=== PATIENT | male | born 1995 | race Caucasian/White ===

== ENCOUNTER 2018-08-12 10:49 | Emergency (ER) | payer OTHER ==
--- NOTE | 2018-08-12 12:13 | ER ---
Nurse's Notes [facility] Name: Yong Moseley Age: 22 yrs Sex: Male : 1995 Arrival Date: 08/12/2018 Time: 10:52 Bed 8 Private MD: Davida Kenyon F Diagnosis: Other chest pain Presentation: 08/12 10:59 Presenting complaint: Patient states: continuous chest pain that is described as sharp/ ss stabbing, began yesterday at [employer]. Pain is worse with ROM of L arm. Transition of care: patient was not received from another setting of care. Onset of symptoms was August 11, 2018. Risk Assessment: Do you want to hurt yourself or someone else? Patient reports no desire to harm self or others. Initial Sepsis Screen: Does the patient meet any 2 criteria? No. Patient's initial sepsis screen is negative. Does the patient have a suspected source of infection? No. Patient's initial sepsis screen is negative. Care prior to arrival: None. 10:59 Method Of Arrival: Ambulatory ss 10:59 Acuity: JASON 3 ss Historical: - Allergies: 11:01 No Known Allergies; ss - Home Meds: 11:01 None [Active]; ss - PMHx: 11:01 None; ss - PSHx: 11:01 None; ss - Immunization history:: Adult Immunizations unknown. - Social history:: Smoking status: Patient uses tobacco products, denies chronic smoking, but will smoke occasionally, Patient/guardian denies using street drugs. - Ebola Screening: : Patient denies exposure to infectious person Patient denies travel to an Ebola-affected area in the 21 days before illness onset. - Family history:: not pertinent. Screenin:51 Abuse screen: Denies threats or abuse. Nutritional screening: No deficits noted. tw2 Tuberculosis screening: No symptoms or risk factors identified. Fall Risk None identified. Assessment: 11:52 Pain: Pain began. tw2 12:16 General: Appears in no apparent distress. well groomed, Behavior is calm, cooperative, tw2 appropriate for age. Pain: Complains of pain in left breast and right breast and anterior aspect of left upper chest and anterior aspect of right upper chest Pain does not radiate. Neuro: Level of Consciousness is awake, alert, obeys commands, Oriented to person, place, time, situation. Cardiovascular: Denies shortness of breath, Heart tones S1 S2 Patient's skin is warm and dry. Respiratory: Airway is patent Respiratory effort is even, unlabored, Respiratory pattern is regular, symmetrical, Breath sounds are clear bilaterally. GI: No signs and/or symptoms were reported involving the gastrointestinal system. : No signs and/or symptoms were reported regarding the genitourinary system. EENT: No signs and/or symptoms were reported regarding the EENT system. Derm: No signs and/or symptoms reported regarding the dermatologic system. Musculoskeletal: Reports pain in left breast and right breast and anterior aspect of left upper chest and anterior aspect of right upper chest with movement and palpation. 12:53 Reassessment: Patient appears in no apparent distress at this time. No changes from tw2 previously documented assessment. Patient and/or family updated on plan of care and expected duration. Pain level reassessed. Patient is alert, oriented x 3, equal unlabored respirations, skin warm/dry/pink. Vital Signs: 11:01 BP 136 / 71; Pulse 69; Resp 15; Temp 98.7(TE); Pulse Ox 100% on R/A; Weight 79.38 kg; ss Height 6 ft. 0 in. (182.88 cm); Pain 5/10; 12:00 BP 122 / 60; Pulse 54; Resp 17; Pulse Ox 99% on R/A; tw2 12:52 BP 127 / 67; Pulse 54; Resp 17; Pulse Ox 99% on R/A; tw2 11:01 Body Mass Index 23.73 (79.38 kg, 182.88 cm) ED Course: 10:52 Patient arrived in ED. dl4 10:52 Davida Kenyon MD is Private Physician. dl4 11:00 Triage completed. ss 11:01 Arm band placed on left wrist. ss 11:12 EKG done, by lab animal technologist. reviewed by River Liu MD. at1 11:45 River Liu MD is Attending Physician. nikki 11:51 Jinny Baron, PANFILO is Primary Nurse. tw2 11:51 Placed in gown. Bed in low position. Adult w/ patient. nurse monitoring on. Pulse ox on. tw2 NIBP on. 11:51 Patient maintains SpO2 saturation greater than 95% on room air. tw2 12:12 Davida Kenyon MD is Referral Physician. [facility] 12:16 Awaiting radiology results. Awaiting for x-ray, Awaiting: PRIOR to discharge. tw2 12:42 Chest Pa And Lat (2 Views) XRAY In Process Unspecified. EDMS 12:53 No provider procedures requiring assistance completed. Patient did not have IV access tw2 during this emergency room visit. Administered Medications: 12:15 Drug: [place] 10 mg-325 mg 1 tabs Route: PO; tw2 12:54 Follow up: Response: No adverse reaction; Pain is decreased tw2 12:24 Drug: TORadol 60 mg Route: IM; Site: right deltoid; tw2 12:54 Follow up: Response: No adverse reaction; Pain is decreased tw2 Outcome: 12:13 Discharge ordered by . [facility] 12:53 Discharged to home ambulatory, with family. tw2 12:53 Condition: stable 12:53 Discharge instructions given to patient, family, Instructed on discharge instructions, follow up and referral plans. no drinking with medication, no driving heavy equipment, medication usage, Demonstrated understanding of instructions, follow-up care, medications, Prescriptions given X 2. 12:54 Patient left the ED. tw2 Signatures: Dispatcher [employer] EDMS River Liu MD MD cha Smirch, Shelby, RN RN Madelaine Huff, apple sorter EKG Tat1 Jinny Baron RN RN tw2 Stoney Correa dl4
--- NOTE | 2018-08-12 12:14 | EDPHYS ---
Physician Documentation [facility] Name: Yong Moseley Age: 22 yrs Sex: Male : 1995 Arrival Date: 08/12/2018 Time: 10:52 Bed 8 Private MD: Davida Kenyon F ED Physician River Liu HPI: 08/12 12:08 This 22 yrs old Male presents to ER via Ambulatory with complaints of Chest nikki Pain. 12:08 The patient or guardian reports chest pain that is located primarily in the anterior nikki chest wall, bilaterally. The pain does not radiate. Associated signs and symptoms: The patient has no apparent associated signs or symptoms. The chest pain is described as sharp. Duration: The patient or guardian reports a single episode, that is still ongoing. Modifying factors: The symptoms are alleviated by remaining still, the symptoms are aggravated by movement, palpation of area. Severity of pain: At its worst the pain was mild moderate in the emergency department the pain is unchanged. The patient has not experienced similar symptoms in the past. Historical: - Allergies: 11:01 No Known Allergies; ss - Home Meds: 11: None [Active]; ss - PMHx: 11: None; ss - PSHx: 11: None; ss - Immunization history:: Adult Immunizations unknown. - Social history:: Smoking status: Patient uses tobacco products, denies chronic smoking, but will smoke occasionally, Patient/guardian denies using street drugs. - Ebola Screening: : Patient denies exposure to infectious person Patient denies travel to an Ebola-affected area in the 21 days before illness onset. - Family history:: not pertinent. ROS: 12:08 Constitutional: Negative for fever, chills, and weight loss, Eyes: Negative for injury, nikki pain, redness, and discharge, ENT: Negative for injury, pain, and discharge, Neck: Negative for injury, pain, and swelling, Cardiovascular: Negative for chest pain, palpitations, and edema, Respiratory: Negative for shortness of breath, cough, wheezing, and pleuritic chest pain, Abdomen/GI: Negative for abdominal pain, nausea, vomiting, diarrhea, and constipation, Back: Negative for injury and pain, : Negative for injury, bleeding, discharge, and swelling, MS/Extremity: Negative for injury and deformity, Skin: Negative for injury, rash, and discoloration, Neuro: Negative for headache, weakness, numbness, tingling, and seizure, Psych: Negative for depression, anxiety, suicide ideation, homicidal ideation, and hallucinations, Allergy/Immunology: Negative for hives, rash, and allergies, Endocrine: Negative for neck swelling, polydipsia, polyuria, polyphagia, and marked weight changes, Hematologic/Lymphatic: Negative for swollen nodes, abnormal bleeding, and unusual bruising. Exam: 12:08 Constitutional: This is a well developed, well nourished patient who is awake, alert, nikki and in no acute distress. Head/Face: Normocephalic, atraumatic. Eyes: Pupils equal round and reactive to light, extra-ocular motions intact. Lids and lashes normal. Conjunctiva and sclera are non-icteric and not injected. Cornea within normal limits. Periorbital areas with no swelling, redness, or edema. ENT: Nares patent. No nasal discharge, no septal abnormalities noted. Tympanic membranes are normal and external auditory canals are clear. Oropharynx with no redness, swelling, or masses, exudates, or evidence of obstruction, uvula midline. Mucous membranes moist. Neck: Trachea midline, no thyromegaly or masses palpated, and no cervical lymphadenopathy. Supple, full range of motion without nuchal rigidity, or vertebral point tenderness. No Meningismus. Cardiovascular: Regular rate and rhythm with a normal S1 and S2. No gallops, murmurs, or rubs. Normal PMI, no JVD. No pulse deficits. Respiratory: Lungs have equal breath sounds bilaterally, clear to auscultation and percussion. No rales, rhonchi or wheezes noted. No increased work of breathing, no retractions or nasal flaring. Abdomen/GI: Soft, non-tender, with normal bowel sounds. No distension or tympany. No guarding or rebound. No evidence of tenderness throughout. Back: No spinal tenderness. No costovertebral tenderness. Full range of motion. Male : Normal genitalia with no discharge or lesions. Skin: Warm, dry with normal turgor. Normal color with no rashes, no lesions, and no evidence of cellulitis. MS/ Extremity: Pulses equal, no cyanosis. Neurovascular intact. Full, normal range of motion. Neuro: Awake and alert, GCS 15, oriented to person, place, time, and situation. Cranial nerves II-XII grossly intact. Motor strength 5/5 in all extremities. Sensory grossly intact. Cerebellar exam normal. Normal gait. Psych: Awake, alert, with orientation to person, place and time. Behavior, mood, and affect are within normal limits. 12:08 Chest/axilla: Inspection: normal, Palpation: tenderness, that is moderate, of the anterior aspect of right upper chest, anterior aspect of left upper chest, right breast and left breast. 12:08 Musculoskeletal/extremity: DVT Exam: No signs of deep vein thrombosis. no pain, no nikki swelling, no tenderness, negative Homans' sign noted on exam, no appreciated bluish discoloration, no erythema, no increased warmth. Vital Signs: 11:01 BP 136 / 71; Pulse 69; Resp 15; Temp 98.7(TE); Pulse Ox 100% on R/A; Weight 79.38 kg; ss Height 6 ft. 0 in. (182.88 cm); Pain 5/10; 12:00 BP 122 / 60; Pulse 54; Resp 17; Pulse Ox 99% on R/A; tw2 12:52 BP 127 / 67; Pulse 54; Resp 17; Pulse Ox 99% on R/A; tw2 11:01 Body Mass Index 23.73 (79.38 kg, 182.88 cm) ss MDM: 11:45 Patient medically screened. [facility] 12:12 Data reviewed: vital signs, nurses notes, EKG, radiologic studies. [facility] 08/12 12:07 Order name: Chest Pa And Lat (2 Views) XRAY [facility] 08/12 11:01 Order name: EKG; Complete Time: 11:02 ss 08/12 11:01 Order name: EKG - Nurse/Tech; Complete Time: 11:49 ss Administered Medications: 12:15 Drug: [place] 10 mg-325 mg 1 tabs Route: PO; tw2 12:54 Follow up: Response: No adverse reaction; Pain is decreased tw2 12:24 Drug: TORadol 60 mg Route: IM; Site: right deltoid; tw2 12:54 Follow up: Response: No adverse reaction; Pain is decreased tw2 Disposition: 08/12/18 12:13 Discharged to Home. Impression: Other chest pain. - Condition is Stable. - Discharge Instructions: Nonspecific Chest Pain, Chest Wall Pain, Chest Wall Pain, [id number]. - Prescriptions for Ibuprofen 600 mg Oral Tablet - take 1 tablet by ORAL route every 8 hours As needed take with food; 30 tablet. Tylenol- Codeine #3 300-30 mg Oral Tablet - take 2 tablets by ORAL route every 6 hours As needed; 26 tablet. - Medication Reconciliation Form, Thank You Letter, Antibiotic Education, Prescription Opioid Use, Work release form form. - Follow up: Davida Kenyon MD; When: 2 - 3 days; Reason: Recheck today's complaints, Continuance of care, Re-evaluation by your physician. - Problem is new. - Symptoms have improved. Signatures: Dispatcher [employer] EDNJ River Liu MD MD cha Smirch, Shelby RN RN Jinny Baron RN RN tw2 Corrections: (The following items were deleted from the chart) 12:54 12:13 08/12/2018 12:13 Discharged to Home. Impression: Other chest pain. Condition is tw2 Stable. Forms are Medication Reconciliation Form, Thank You Letter, Antibiotic Education, Prescription Opioid Use. Follow up: Davida Kenyon; When: 2 - 3 days; Reason: Recheck today's complaints, Continuance of care, Re-evaluation by your physician. Problem is new. Symptoms have improved. nikki
--- NOTE | 2018-08-12 12:17 | EKG ---
Test Date: 2018-08-12 Test Time: 11:03:43 Information Technology Associate: AYSE MEASUREMENT RESULTS: Intervals: Rate: 67 CO: 140 QRSD: 90 QT: 384 QTc: 405 [place]: P: 50 CO: 140 QRS: 61 T: 41 INTERPRETIVE STATEMENTS: Normal sinus rhythm Normal ECG Compared to ECG 05/05/2004 15:13:00 Sinus bradycardia no longer present Early repolarization no longer present Electronically Signed On 08-12-18 12:16:12 CDT by Peter Wiley
[2018-08-12] MEDS ORDERED: HYDROCODONE/APAP 10/325 TAB ONE (12:26)
[2018-08-12] MEDS ORDERED: KETOROLAC 30 MG/ML INJ ONE (12:32)
--- NOTE | 2018-08-12 12:47 | RAD REPORT ---
EXAM DESCRIPTION: Gale Santos (2 Views)08/12/2018 12:42 pm CLINICAL HISTORY: Cough COMPARISON: 2009 FINDINGS: The lungs appear clear of acute infiltrate. The heart is normal size IMPRESSION: No acute abnormalities displayed
== END 2018-08-12 12:54 | disposition home or self-care (01) ==
LOC: ER 10:49
DX: R07.9 Chest pain, unspecified (principal); Z72.0 Tobacco use
CPT/HCPCS: 71046; 93005; 96372; 99285

== ENCOUNTER 2018-10-15 11:32 | Emergency (ER) | payer OTHER ==
--- NOTE | 2018-10-15 12:00 | EDPHYS ---
Physician Documentation [facility] Name: Yong Moseley Age: 22 yrs Sex: Male : 1995 Arrival Date: 10/15/2018 Time: 11:35 Bed 9 Private MD: ED Physician River Liu HPI: 10/15 11:56 This 22 yrs old Male presents to ER via Ambulatory with complaints of Redness nikki of Eye. 11:56 The patient is experiencing redness, The patient sustained None. to both eyes. Onset: nikki The symptoms/episode began/occurred yesterday. Duration: the symptoms are continuous. Aggravated by nothing. Alleviated by nothing. Associated signs and symptoms: Pertinent positives: None. Pertinent negatives: None. Patient does not utilize any form of vision correction. Severity of symptoms: At their worst the symptoms were mild moderate in the emergency department the symptoms are unchanged. The patient has not experienced similar symptoms in the past. Historical: - Allergies: 11:38 No Known Allergies; hj - Home Meds: 11:38 None [Active]; hj - PMHx: 11:38 None; hj - PSHx: 11:38 None; hj - Immunization history:: Adult Immunizations up to date. - Social history:: Smoking status: Patient uses tobacco products, Patient/guardian denies using alcohol. - Family history:: not pertinent. - Ebola Screening: : Patient negative for fever greater than or equal to 101.5 degrees Fahrenheit, and additional compatible Ebola Virus Disease symptoms Patient denies exposure to infectious person Patient denies travel to an Ebola-affected area in the 21 days before illness onset. ROS: 11:56 Constitutional: Negative for fever, chills, and weight loss, ENT: Negative for injury, nikki pain, and discharge, Neck: Negative for injury, pain, and swelling, Cardiovascular: Negative for chest pain, palpitations, and edema, Respiratory: Negative for shortness of breath, cough, wheezing, and pleuritic chest pain, Abdomen/GI: Negative for abdominal pain, nausea, vomiting, diarrhea, and constipation, Back: Negative for injury and pain, : Negative for injury, bleeding, discharge, and swelling, MS/Extremity: Negative for injury and deformity, Skin: Negative for injury, rash, and discoloration, Neuro: Negative for headache, weakness, numbness, tingling, and seizure, Psych: Negative for depression, anxiety, suicide ideation, homicidal ideation, and hallucinations, Allergy/Immunology: Negative for hives, rash, and allergies, Endocrine: Negative for neck swelling, polydipsia, polyuria, polyphagia, and marked weight changes, Hematologic/Lymphatic: Negative for swollen nodes, abnormal bleeding, and unusual bruising. 11:56 Eyes: Positive for pain, redness, tearing, of the outer aspect of conjuctiva of right eye, iris of right eye, inner aspect of conjuctiva of right eye, outer aspect of conjuctiva of left eye, iris of left eye and inner aspect of conjunctiva of left eye. Exam: 11:56 Constitutional: This is a well developed, well nourished patient who is awake, alert, nikki and in no acute distress. Head/Face: Normocephalic, atraumatic. ENT: Nares patent. No nasal discharge, no septal abnormalities noted. Tympanic membranes are normal and external auditory canals are clear. Oropharynx with no redness, swelling, or masses, exudates, or evidence of obstruction, uvula midline. Mucous membranes moist. Neck: Trachea midline, no thyromegaly or masses palpated, and no cervical lymphadenopathy. Supple, full range of motion without nuchal rigidity, or vertebral point tenderness. No Meningismus. Chest/axilla: Normal chest wall appearance and motion. Nontender with no deformity. No lesions are appreciated. Cardiovascular: Regular rate and rhythm with a normal S1 and S2. No gallops, murmurs, or rubs. Normal PMI, no JVD. No pulse deficits. Respiratory: Lungs have equal breath sounds bilaterally, clear to auscultation and percussion. No rales, rhonchi or wheezes noted. No increased work of breathing, no retractions or nasal flaring. Abdomen/GI: Soft, non-tender, with normal bowel sounds. No distension or tympany. No guarding or rebound. No evidence of tenderness throughout. Back: No spinal tenderness. No costovertebral tenderness. Full range of motion. Male : Normal genitalia with no discharge or lesions. Skin: Warm, dry with normal turgor. Normal color with no rashes, no lesions, and no evidence of cellulitis. MS/ Extremity: Pulses equal, no cyanosis. Neurovascular intact. Full, normal range of motion. Neuro: Awake and alert, GCS 15, oriented to person, place, time, and situation. Cranial nerves II-XII grossly intact. Motor strength 5/5 in all extremities. Sensory grossly intact. Cerebellar exam normal. Normal gait. Psych: Awake, alert, with orientation to person, place and time. Behavior, mood, and affect are within normal limits. 11:56 Eyes: Periorbital structures: appear normal, no acute changes, Pupils: no acute changes, equal, round, and reactive to light and accomodation, Extraocular movements: no acute changes, Conjunctiva: normal, no acute changes, Corneas: are normal, no acute changes, Sclera: injected, Anterior chamber: normal, Lids and lashes: edema, of the right eye, Nystagmus: is not appreciated. Vital Signs: 11:38 BP 126 / 80; Pulse 80; Resp 18; Temp 98.0(O); Pulse Ox 98% on R/A; Weight 80.74 kg; hj Height 5 ft. 11 in. (180.34 cm); Pain 8/10; 11:38 Body Mass Index 24.83 (80.74 kg, 180.34 cm) MDM: 11:45 Patient medically screened. [facility] 11:56 Data reviewed: vital signs, nurses notes. [facility] Administered Medications: No medications were administered Disposition: 10/15/18 11:59 Discharged to Home. Impression: Conjunctivitis. - Condition is Stable. - Discharge Instructions: Bacterial Conjunctivitis. - Prescriptions for Polytrim 10,000 unit- 1 mg/mL Ophthalmic drops - instill 1 drop by OPHTHALMIC route every 6 hours both eyes; 10 drop. - Medication Reconciliation Form, Thank You Letter, Antibiotic Education, Prescription Opioid Use, Work release form form. - Follow up: Private Physician; When: 2 - 3 days; Reason: Recheck today's complaints, Continuance of care, Re-evaluation by your physician. Follow up: Yong Contreras MD; When: 2 - 3 days; Reason: Recheck today's complaints, Continuance of care, Re-evaluation by your physician. - Problem is new. - Symptoms have improved. Signatures: River Liu MD MD cha Joaquin, Henry, RN RN Corrections: (The following items were deleted from the chart) 12:07 11:59 10/15/2018 11:59 Discharged to Home. Impression: Conjunctivitis. Condition is hj Stable. Forms are Medication Reconciliation Form, Thank You Letter, Antibiotic Education, Prescription Opioid Use. Follow up: Private Physician; When: 2 - 3 days; Reason: Recheck today's complaints, Continuance of care, Re-evaluation by your physician. Follow up: Yong Contreras; When: 2 - 3 days; Reason: Recheck today's complaints, Continuance of care, Re-evaluation by your physician. Problem is new. Symptoms have improved. nikki
--- NOTE | 2018-10-15 12:00 | ER ---
Nurse's Notes [facility] Name: Yong Moseley Age: 22 yrs Sex: Male : 1995 Arrival Date: 10/15/2018 Time: 11:35 Bed 9 Private MD: Diagnosis: Conjunctivitis Presentation: 10/15 11:36 Presenting complaint: Patient states: i think i had pink eye, it started Sunday hj night; i used pink eye relief OTC but nor helping; pain is 8/10;. Transition of care: patient was not received from another setting of care. Onset of symptoms was October 15, 2018. Risk Assessment: Do you want to hurt yourself or someone else? Patient reports no desire to harm self or others. Initial Sepsis Screen: Does the patient meet any 2 criteria? No. Patient's initial sepsis screen is negative. Does the patient have a suspected source of infection? No. Patient's initial sepsis screen is negative. Care prior to arrival: None. 11:36 Method Of Arrival: Ambulatory 11:36 Acuity: JASON 4 hj Triage Assessment: 11:38 General: Appears in no apparent distress. uncomfortable, Behavior is calm, cooperative, hj appropriate for age. Pain: Complains of pain in right eye. Historical: - Allergies: 11:38 No Known Allergies; hj - Home Meds: 11:38 None [Active]; hj - PMHx: 11:38 None; hj - PSHx: 11:38 None; hj - Immunization history:: Adult Immunizations up to date. - Social history:: Smoking status: Patient uses tobacco products, Patient/guardian denies using alcohol. - Family history:: not pertinent. - Ebola Screening: : Patient negative for fever greater than or equal to 101.5 degrees Fahrenheit, and additional compatible Ebola Virus Disease symptoms Patient denies exposure to infectious person Patient denies travel to an Ebola-affected area in the 21 days before illness onset. Screenin:20 Abuse screen: Denies threats or abuse. Denies injuries from another. Nutritional hj screening: No deficits noted. Tuberculosis screening: No symptoms or risk factors identified. Fall Risk None identified. Vital Signs: 11:38 BP 126 / 80; Pulse 80; Resp 18; Temp 98.0(O); Pulse Ox 98% on R/A; Weight 80.74 kg; hj Height 5 ft. 11 in. (180.34 cm); Pain 8/10; 11:38 Body Mass Index 24.83 (80.74 kg, 180.34 cm) hj ED Course: 11:35 Patient arrived in ED. mr 11:37 Triage completed. hj 11:38 Arm band placed on left wrist. hj 11:38 Patient has correct armband on for positive identification. Placed in gown. Bed in low hj position. Call light in reach. Side rails up X 1. Adult w/ patient. 11:45 River Liu MD is Attending Physician. [facility] 11:59 Yong Contreras MD is Referral Physician. [facility] 12:07 No provider procedures requiring assistance completed. Patient did not have IV access hj during this emergency room visit. Administered Medications: No medications were administered Outcome: 11:59 Discharge ordered by . [facility] 12:07 Discharged to home ambulatory, with family. 12:07 Condition: stable 12:07 Discharge instructions given to patient, family, Instructed on discharge instructions, follow up and referral plans. medication usage, Demonstrated understanding of instructions, follow-up care, medications, Prescriptions given X 1. 12:07 Patient left the ED. Signatures: River iLu MD MD cha Rivera, Mary Rickey Mendoza, RN RN hj Corrections: (The following items were deleted from the chart) 11:39 11:38 Resp 18bpm; Pulse Ox 98% RA; Temp 98.0F Oral; 80.74 kg; Height 5 ft. 11 in.; BMI: hj 24.8; Pain 8/10; hj
== END 2018-10-15 12:07 | disposition home or self-care (01) ==
LOC: ER 11:32
DX: H10.9 Unspecified conjunctivitis (principal); Z72.0 Tobacco use
CPT/HCPCS: 99282

== ENCOUNTER 2019-06-07 11:27 | Emergency (ER) | payer OTHER ==
--- OUTSIDE RECORDS SUMMARY | 2019-06-07 11:29 | XMS REPORT ---
:1995 [facility] Address [address] [place] [address] Care Team Providers Name Role Phone Unavailable Unavailable Unavailable Problems This patient has no known problems. Allergies, Adverse Reactions, Alerts This patient has no known allergies or adverse reactions. Medications This patient has no known medications. Encounters Start End Encounter Admission Attending Care Care Encounter Date/Time Date/Time Type Type Clinicians Facility Department ID 2019-03-10 2019-03-10 Emergency E [facility] [id number] 21:49:00 21:49:00
--- NOTE | 2019-06-07 12:47 | ER ---
Nurse's Notes [facility] Name: Yong Moseley Age: 23 yrs Sex: Male : 1995 Arrival Date: 06/07/2019 Time: 11:29 Bed 24 Private MD: Diagnosis: Nausea Presentation: 06/07 11:55 Presenting complaint: Patient states: has had acid reflux for a couple days, +nausea, iw no vomiting, black stools for two days. Transition of care: patient was not received from another setting of care. Onset of symptoms was June 05, 2019. Risk Assessment: Do you want to hurt yourself or someone else? Patient reports no desire to harm self or others. Initial Sepsis Screen: Does the patient meet any 2 criteria? No. Patient's initial sepsis screen is negative. Does the patient have a suspected source of infection? No. Patient's initial sepsis screen is negative. Care prior to arrival: None. 11:55 Method Of Arrival: Ambulatory iw 11:55 Acuity: JASON 3 iw Historical: - Allergies: 11:56 No Known Allergies; iw - Home Meds: 11:56 None [Active]; iw - PMHx: 11:56 None; iw - PSHx: 11:56 left foot; iw - Immunization history:: Adult Immunizations not up to date. - Coronavirus screen:: The patient has NOT traveled to [place], [place], or [place] in the past 14 days. Proceed with normal triage process as indicated. - Social history:: Smoking status: Patient reports the use of cigarette tobacco products, denies chronic smoking, but will smoke occasionally. - Ebola Screening: : Patient negative for fever greater than or equal to 101.5 degrees Fahrenheit, and additional compatible Ebola Virus Disease symptoms Patient denies exposure to infectious person Patient denies travel to an Ebola-affected area in the 21 days before illness onset No symptoms or risks identified at this time. Screenin:00 Abuse screen: Denies threats or abuse. Nutritional screening: Has had N/V for 3 or more vc days. Tuberculosis screening: No symptoms or risk factors identified. Fall Risk None identified. Assessment: 12:00 Musculoskeletal: Circulation, motion, and sensation intact. Capillary refill < 3 vc seconds, Range of motion: intact in all extremities. 12:00 General: Appears in no apparent distress. comfortable. Pain: Denies pain. Neuro: Level vc of Consciousness is awake, alert, obeys commands, Oriented to person, place, time. Cardiovascular: Patient's skin is warm and dry. Respiratory: Airway is patent Respiratory effort is even, unlabored. GI: Stools are reported to be normal. Reports nausea and black tarry stool. : No signs and/or symptoms were reported regarding the genitourinary system. Derm: Skin temperature is warm. 12:30 Reassessment: Patient and/or family updated on plan of care and expected duration. Pain vc level reassessed. Patient is alert, oriented x 3, equal unlabored respirations, skin warm/dry/pink. Patient denies pain at this time. Patient states feeling better. Vital Signs: 11:56 BP 144 / 80; Pulse 78; Resp 16; Temp 98.0; Pulse Ox 100% on R/A; Weight 86.18 kg; iw Height 5 ft. 11 in. (180.34 cm); Pain 0/10; 11:56 Body Mass Index 26.50 (86.18 kg, 180.34 cm) iw ED Course: 11:29 Patient arrived in ED. as 11:49 Ruth Falcon RN is Primary Nurse. vc 11:54 Jose Foreman NP is PHCP. pm1 11:54 Azael Sadler MD is Attending Physician. pm1 11:56 Triage completed. iw 11:56 Arm band placed on. iw 12:15 Patient has correct armband on for positive identification. vc 12:52 No provider procedures requiring assistance completed. Patient did not have IV access vc during this emergency room visit. Administered Medications: 12:48 Drug: Zofran 4 mg Route: PO; vc Outcome: 12:46 Discharge ordered by . pm1 12:50 Discharged to home ambulatory, with significant other. vc 12:50 Condition: good 12:50 Discharge instructions given to patient, Instructed on discharge instructions, follow up and referral plans. no drinking with medication, medication usage, Demonstrated understanding of instructions, follow-up care, medications, Prescriptions given X 2. 12:53 Patient left the ED. vc Signatures: Sherlyn Alfonso Irene, RN RN iw Jose Foreman NP ROLLER SKATE REPAIRER pm1 Ruth Falcon RN RN vc Corrections: (The following items were deleted from the chart) 13:11 13:06 Patient left the ED. vc vc 15:20 General: Appears in no apparent distress. comfortable, vc vc : 15:20 Pain: Denies pain. vc vc 15:20 Neuro: Level of Consciousness is awake, alert, obeys commands, Oriented to vc person, place, time, vc : 15:20 Cardiovascular: Patient's skin is warm and dry. vc vc : 15:20 Respiratory: Airway is patent Respiratory effort is even, unlabored, vc vc 15:20 GI: Stools are reported to be normal. Reports nausea and black tarry stool. vc vc : 15:20 : No signs and/or symptoms were reported regarding the genitourinary system. vc vc 15:20 EENT: vc vc 15:20 Derm: Skin temperature is warm vc vc
--- NOTE | 2019-06-07 12:47 | EDPHYS ---
Physician Documentation [facility] Name: Yong Moseley Age: 23 yrs Sex: Male : 1995 Arrival Date: 06/07/2019 Time: 11:29 Bed 24 Private MD: ED Physician Azael Sadler HPI: 06/07 12:45 This 23 yrs old Male presents to ER via Ambulatory with complaints of pm1 Black/Tarry Stools, Indigestion. 12:45 The patient presents to the emergency department with complaints of indigestion and pm1 dark stools. He had indigestion three days ago that has now resolved. Took Pepto Bismol the night before onset of dark stool and has been taking Tums. His stool is no longer as dark. Abdominal pain: none is appreciated. Associated signs and symptoms: Pertinent positives: Nausea, Pertinent negatives: chest pain, diarrhea, fever, shortness of breath, vomiting. Severity of symptoms: in the emergency department the symptoms have improved. The patient has not experienced similar symptoms in the past. Presented to urgent care prior to arrival for the same complaint and was directed to the ER. Historical: - Allergies: 11:56 No Known Allergies; iw - Home Meds: 11:56 None [Active]; iw - PMHx: 11:56 None; iw - PSHx: 11:56 left foot; iw - Immunization history:: Adult Immunizations not up to date. - Coronavirus screen:: The patient has NOT traveled to [place], [place], or [place] in the past 14 days. Proceed with normal triage process as indicated. - Social history:: Smoking status: Patient reports the use of cigarette tobacco products, denies chronic smoking, but will smoke occasionally. - Ebola Screening: : Patient negative for fever greater than or equal to 101.5 degrees Fahrenheit, and additional compatible Ebola Virus Disease symptoms Patient denies exposure to infectious person Patient denies travel to an Ebola-affected area in the 21 days before illness onset No symptoms or risks identified at this time. ROS: 12:45 Constitutional: Negative for fever, chills, and weight loss, Cardiovascular: Negative pm1 for chest pain, palpitations, and edema, Respiratory: Negative for shortness of breath, cough, wheezing, and pleuritic chest pain. 12:45 Back: Negative for injury and pain, : Negative for injury, bleeding, discharge, and swelling, MS/Extremity: Negative for injury and deformity, Skin: Negative for injury, rash, and discoloration, Neuro: Negative for headache, weakness, numbness, tingling, and seizure. 12:45 Abdomen/GI: Positive for nausea, black/tarry stool, Negative for vomiting, diarrhea, constipation. 12:45 All other systems are negative. Exam: 12:45 Abdomen/GI: Rectal exam: Stool: normal, guaiac negative, Patient wanted to provide a pm1 stool sample which was normal colored and pebble shaped and hemoccult negative. He did not want EVER or visualization of anus, the exam is deferred, because of patient request. 12:45 Constitutional: This is a well developed, well nourished patient who is awake, alert, pm1 and in no acute distress. Head/Face: Normocephalic, atraumatic. Chest/axilla: Normal chest wall appearance and motion. Nontender with no deformity. No lesions are appreciated. Cardiovascular: Regular rate and rhythm with a normal S1 and S2. No gallops, murmurs, or rubs. No pulse deficits. Respiratory: Lungs have equal breath sounds bilaterally, clear to auscultation and percussion. No rales, rhonchi or wheezes noted. No increased work of breathing, no retractions or nasal flaring. Abdomen/GI: Soft, non-tender, with normal bowel sounds. No distension or tympany. No guarding or rebound. No evidence of tenderness throughout. Back: No spinal tenderness. No costovertebral tenderness. Full range of motion. Skin: Warm, dry with normal turgor. Normal color with no rashes, no lesions, and no evidence of cellulitis. MS/ Extremity: Pulses equal, no cyanosis. Neurovascular intact. Full, normal range of motion. 12:45 Neuro: Orientation: is normal, Motor: is normal, moves all fours, Gait: is steady, at a normal pace, without difficulty. Vital Signs: 11:56 BP 144 / 80; Pulse 78; Resp 16; Temp 98.0; Pulse Ox 100% on R/A; Weight 86.18 kg; iw Height 5 ft. 11 in. (180.34 cm); Pain 0/10; 11:56 Body Mass Index 26.50 (86.18 kg, 180.34 cm) iw MDM: 11:56 Patient medically screened. pm1 12:42 Refusal of service: The patient/guardian displays adequate decision making capability pm1 and despite a detailed discussion of alternatives, benefits, risks, and consequences refuses: all lab tests, all X-rays, Discussed negative hemoccult results with patient. Patient refused visualization of anus and EVER. Patient reported continued nausea. Discussed labs, IV fluids, medication for nausea, and KUB x-ray. Patient refused because he has a wedding to go to today and will return to the ER if his symptoms worsen. 12:42 Data reviewed: vital signs. Data interpreted: Pulse oximetry: on room air is 100 %. pm1 Interpretation: normal. 12:42 Counseling: I had a detailed discussion with the patient and/or guardian regarding: the pm1 historical points, exam findings, and any diagnostic results supporting the discharge/admit diagnosis, the need for outpatient follow up, for definitive care, a executive producer, to return to the emergency department if symptoms worsen or persist or if there are any questions or concerns that arise at home. Administered Medications: 12:48 Drug: Zofran 4 mg Route: PO; vc Disposition: 14:16 Co-signature as Attending Physician, Azael Sadler MD. rn Disposition: 06/07/19 12:46 Discharged to Home. Impression: Nausea. - Condition is Stable. - Discharge Instructions: Nausea, Adult, Heartburn. - Prescriptions for Zofran 4 mg Oral Tablet - take 1 tablet by ORAL route every 12 hours As needed; 20 tablet. Pepcid 20 mg Oral Tablet - take 1 tablet by ORAL route every 12 hours for 10 days; 20 tablet. - Medication Reconciliation Form, Thank You Letter, Antibiotic Education, Prescription Opioid Use, Work release form form. - Follow up: Emergency Department; When: As needed; Reason: Worsening of condition. Follow up: Private Physician; When: 2 - 3 days; Reason: Recheck today's complaints, Continuance of care, Re-evaluation by your physician. - Problem is new. - Symptoms have improved. Signatures: Mary Ramirez RN RN Azael Sadler MD MD rn Marinas, Patrick, SCOTT MEDICAL ASSISTANT INSTRUCTOR pm1 Ruth Falcon RN RN vc Corrections: (The following items were deleted from the chart) 13:06 12:46 06/07/2019 12:46 Discharged to Home. Impression: Nausea. Condition is Stable. vc Forms are Medication Reconciliation Form, Thank You Letter, Antibiotic Education, Prescription Opioid Use. Follow up: Emergency Department; When: As needed; Reason: Worsening of condition. Follow up: Private Physician; When: 2 - 3 days; Reason: Recheck today's complaints, Continuance of care, Re-evaluation by your physician. Problem is new. Symptoms have improved. pm1
[2019-06-07] MEDS ORDERED: ONDANSETRON 4 MG (ODT) TAB ONE (12:49)
[2019-06-07 13:16] VITALS: BP 144/80; TEMP 98; O2SAT 100
== END 2019-06-07 13:06 | disposition home or self-care (01) ==
LOC: ER 11:27
DX: R11.0 Nausea (principal); Z72.0 Tobacco use
CPT/HCPCS: 99283

== ENCOUNTER 2021-11-10 18:16 | Emergency (ER) | payer OTHER ==
[2021-11-10] MEDS ORDERED: ONDANSETRON 4 MG/2 ML VIAL ONE (19:12)
[2021-11-10] MEDS ORDERED: MORPHINE 4 MG/ML SYR ONE ×2 (19:12→19:58)
[2021-11-10 19:22] LABS: Albumin 4.5 g/dL (3.4-5.0); Bilirubin Total 1.5 mg/dL (0.2-1.0); Potassium 3.9 mmol/L (3.5-5.1); Protein, Total 7.7 g/dL (6.4-8.2)
[2021-11-10 19:23] LABS: Absolute Lymphocytes (CBC) 1.6 K/uL (0.7-4.9); Hematocrit 46.7 % (39.6-49.0); Lymphocytes % 16.1 % (15.3-44.8); MCV 91.1 fL (80-100); MPV 9.9 fL (7.6-11.3); RBC Red Blood Cell Count 5.12 M/uL (4.33-5.43)
[2021-11-10 19:50] LABS: Urine Blood Negative (Negative); Urine Glucose Negative (Negative); Urine Protein 1+ (Negative); Urine Specific Gravity >=1.030 (1.005-1.030)
[2021-11-10] MEDS ORDERED: NA CHLORIDE 0.9% 1,000 ML ONE (19:58)
--- NOTE | 2021-11-10 20:32 | RAD REPORT ---
EXAM DESCRIPTION: CTAbdomen Pelvis W Contrast - 11/10/2021 8:12 pm CLINICAL HISTORY: Abdominal pain. Abdominal pain, acute, nonlocalized COMPARISON: CT ABD PELVIS W CONTRAST dated 03/17/2009 TECHNIQUE: Biphasic CT imaging of the abdomen and pelvis was performed with 100 ml non-ionic IV cont rast. All CT scans are performed using dose optimization technique as appropriate and may include automated exposure control or mA/KV adjustment according to patient size. FINDINGS: The lung bases are clear. The liver, spleen, pancreas, adrenal glands are within normal limits. Horseshoe kidney. No bowel obstruction, free air, free fluid or abscess. The appendix is normal. No evidence of signi ficant lymphadenopathy. No suspicious bony findings. IMPRESSION: No acute intra-abdominal or pelvic finding.
[2021-11-10] MEDS ORDERED: DICYCLOMINE HCL 20 MG/2 ML AMP IM ONE (20:59)
--- NOTE | 2021-11-10 21:06 | EDPHYS ---
Physician Documentation [facility] Name: Yong Moseley Age: 25 yrs Sex: Male : 1995 Arrival Date: 11/10/2021 Time: 18:18 Bed 7 Private MD: ED Physician Michel Puga HPI: 11/10 18:55 This 25 yrs old Male presents to ER via Ambulatory with complaints of Abdominal Pain. cp 18:55 The patient presents with abdominal pain mid and lower abdomen. Onset: The cp symptoms/episode began/occurred 4 day(s) ago. 18:55 The symptoms do not radiate. Associated signs and symptoms: Pertinent positives: cp diarrhea, Pertinent negatives: blood in stools, chest pain, constipation, dysuria, fever, headache, hematuria, shortness of breath, testicular pain, vomiting. The symptoms are described as constant. Modifying factors: the symptoms are aggravated by movement, walking. Severity of pain: in the emergency department the pain is unchanged despite home interventions. Historical: - Allergies: 18:46 No Known Allergies; iw - Home Meds: 18:46 None [Active]; iw - PMHx: 18:46 None; iw - PSHx: 18:46 gregory holes; facial surgery; iw - Immunization history:: Client reports receiving the 2nd dose of the Covid vaccine. - Social history:: Smoking status: Patient reports the use of cigarette tobacco products. ROS: 19:00 Constitutional: Negative for body aches, chills, fever, poor PO intake. cp 19:00 Respiratory: Negative for cough, shortness of breath, wheezing. 19:00 Abdomen/GI: Positive for abdominal pain, diarrhea, Negative for vomiting, constipation, anorexia. 19:00 Eyes: Negative for injury, pain, redness, and discharge. cp 19:00 Cardiovascular: Negative for chest pain, palpitations. 19:00 Back: Negative for pain at rest, pain with movement. 19:00 : Negative for urinary symptoms, hematuria, penile pain, testicular pain 19:00 Neuro: Negative for altered mental status, headache, weakness. 19:00 All other systems are negative. Exam: 19:05 Constitutional: The patient appears in no acute distress, alert, awake, non-toxic, well cp developed, well nourished, uncomfortable. 19:05 Head/Face: Normocephalic, atraumatic. cp 19:05 Eyes: Periorbital structures: appear normal, Conjunctiva: normal, no exudate, no injection, Sclera: no appreciated abnormality, Lids and lashes: appear normal, bilaterally. 19:05 ENT: External ear(s): are unremarkable, Nose: is normal, Mouth: is normal, Posterior pharynx: Airway: no evidence of obstruction, patent. 19:05 Chest/axilla: Inspection: normal, Palpation: is normal, no crepitus, no tenderness. 19:05 Cardiovascular: Rate: normal, Rhythm: regular. 19:05 Respiratory: the patient does not display signs of respiratory distress, Respirations: normal, no use of accessory muscles, no retractions, labored breathing, is not present, Breath sounds: are clear throughout, no decreased breath sounds, no stridor, no wheezing. 19:05 Abdomen/GI: Inspection: abdomen appears normal, Bowel sounds: active, all quadrants, Palpation: soft, in all quadrants, moderate abdominal tenderness, in the umbilical area, right lower quadrant and left lower quadrant, rebound tenderness, is not appreciated, voluntary guarding, is elicited in the umbilical area, right lower quadrant and left lower quadrant. 19:05 Back: CVA tenderness, is absent. 19:05 Skin: no rash present. 19:05 Neuro: Orientation: to person, place \T\ time. Mentation: is normal. Vital Signs: 18:45 BP 140 / 77; Pulse 69; Resp 16; Temp 98.5; Pulse Ox 99% on R/A; iw 21:17 BP 136 / 72; Pulse 61; Resp 18; Pulse Ox 100% on R/A; ld1 MDM: 19:43 Patient medically screened. cp 21:05 Patient medically screened. cp 21:05 Data reviewed: vital signs, nurses notes, lab test result(s), radiologic studies, CT cp scan. 21:05 Differential diagnosis: appendicitis, diverticulitis, gastritis, non-specific abd pain, cp pancreatitis, Pyelonephritis, Ureterolithiasis, urinary tract infection. Counseling: I had a detailed discussion with the patient and/or guardian regarding: the historical points, exam findings, and any diagnostic results supporting the discharge/admit diagnosis, lab results, radiology results, to return to the emergency department if symptoms worsen or persist or if there are any questions or concerns that arise at home. Response to treatment: the patient's symptoms have markedly improved after treatment, and as a result, I will discharge patient. Special discussion: Based on the patient's Hx, exam, and Dx evaluation, there is no indication for emergent surgery or inpatient Tx. It is understood by the patient/guardian that if the Sx's persist or worsen they need to return immediately for re-evaluation. ED course: VSS. WBC normal, CT abdomen/pelvis negative for acute findings. Will discharge to home for continued monitoring. 11/10 18:47 Order name: CBC with Diff; Complete Time: 19:44 11/10 20:31 Interpretation: Normal except: MARGARITO% 77.0. cp 11/10 18:47 Order name: CMP; Complete Time: 19:44 11/10 21:04 Interpretation: Normal except: BUN 20; GFR 80; AST 83; ALT 156; BILIT 1.5. cp 11/10 18:47 Order name: Lipase; Complete Time: 19:44 11/10 19:05 Order name: CT Abd/Pelvis - IV Contrast Only; Complete Time: 20:42 cp 11/10 20:42 Interpretation: Report reviewed. 11/10 19:51 Order name: Urine Dipstick-Ancillary; Complete Time: 20:31 EDAK 11/10 20:31 Interpretation: Normal except: UKET Trace; UPROT 1+. cp 11/10 18:47 Order name: IV Saline Lock; Complete Time: 19:12 11/10 18:47 Order name: Labs collected and sent; Complete Time: 19:12 11/10 18:47 Order name: Urine Dipstick-Ancillary (obtain specimen); Complete Time: 19:54 11/10 20:43 Order name: PO challenge; Complete Time: 20:55 cp Administered Medications: 19:12 Drug: Zofran (Ondansetron) 4 mg Route: IVP; Site: right antecubital; iw 19:54 Follow up: Response: No adverse reaction ld1 19:12 Drug: morphine 4 mg Route: IVP; Infused Over: 4 mins; Site: right antecubital; iw 19:54 Follow up: Response: Pain is unchanged, physician notified ld1 19:54 Drug: NS 0.9% 1000 ml Route: IV; Rate: 1 bolus; Site: right antecubital; ld1 19:54 Drug: morphine 4 mg Route: IVP; Infused Over: 4 mins; Site: right antecubital; ld1 20:55 Drug: Bentyl (dicyclomine) 20 mg Route: IM; Site: right deltoid; ld1 Disposition: 11/11 03:57 Co-signature as Attending Physician, Michel Puga MD. 7 Disposition Summary: 11/10/21 21:05 Discharge Ordered Location: Home cp Problem: new cp Symptoms: have improved cp Condition: Stable cp Diagnosis - Abdominal pain, unspecified cp - Diarrhea, unspecified cp Followup: cp - With: Ryne Lacy MD - When: 2 - 3 days - Reason: Worsening of condition Discharge Instructions: - Discharge Summary Sheet cp - Abdominal Pain, Adult cp - Food Choices to Help Relieve Diarrhea, Adult cp - Diarrhea, Adult cp - Form - Excuse from Work, School, or Physical Activity cp Forms: - Medication Reconciliation Form cp - Thank You Letter cp - Antibiotic Education cp - Prescription Opioid Use cp Prescriptions: - Ibuprofen 800 mg Oral Tablet - take 1 tablet by ORAL route every 8 hours As needed take with food; 30 tablet; cp Refills: 0, Product Selection Permitted - Zofran 4 mg Oral Tablet - take 1 tablet by ORAL route every 12 hours As needed; 20 tablet; Refills: 0, cp Product Selection Permitted - dicyclomine 20 mg Oral Tablet - take 1 tablet by ORAL route 4 times per day; 30 tablet; Refills: 0, Product cp Selection Permitted Signatures: Dispatcher [employer] Mary Soares RN RN iw Page, Corey, PA PA cp Michel Puga MD MD [facility] Melanie Iqbal RN RN ld1 Corrections: (The following items were deleted from the chart) 11/10 20:45 11/09 19:00 Constitutional: Negative for body aches, chills, fever, poor PO intake, cp cp 11/10 20:45 11/09 19:00 Abdomen/GI: Positive for abdominal pain, diarrhea, Negative for vomiting, cp constipation, anorexia, cp 11/10 20:45 11/09 19:00 Respiratory: Negative for cough, shortness of breath, wheezing, cp cp 11/10 21:04 21:04 Normal except: BUN 20; GFR 80; AST 83; ALT 156. cp cp
--- NOTE | 2021-11-10 21:06 | ER ---
Nurse's Notes [facility] Name: Yong Moseley Age: 25 yrs Sex: Male : 1995 Arrival Date: 11/10/2021 Time: 18:18 Bed 7 Private MD: Diagnosis: Abdominal pain, unspecified;Diarrhea, unspecified Presentation: 11/10 18:45 Chief complaint: Patient states: having pains that fluctuate in stomach feels like iw punching pain like a soreness X 4 days , + diarrhea. Coronavirus screen: At this time, the client does not indicate any symptoms associated with coronavirus-19. Ebola Screen: Patient negative for fever greater than or equal to 101.5 degrees Fahrenheit, and additional compatible Ebola Virus Disease symptoms Patient denies exposure to infectious person. Patient denies travel to an Ebola-affected area in the 21 days before illness onset. No symptoms or risks identified at this time. Initial Sepsis Screen: Does the patient meet any 2 criteria? No. Patient's initial sepsis screen is negative. Does the patient have a suspected source of infection? No. Patient's initial sepsis screen is negative. Risk Assessment: Do you want to hurt yourself or someone else? Patient reports no desire to harm self or others. Onset of symptoms was November 06, 2021. 18:45 Method Of Arrival: Ambulatory iw 18:45 Acuity: JASON 3 iw Triage Assessment: 21:18 General: Appears in no apparent distress. uncomfortable, Behavior is calm, cooperative, ld1 appropriate for age. Pain: Complains of pain in abdomen. GI: Abdomen is flat, non-distended. Historical: - Allergies: 18:46 No Known Allergies; iw - Home Meds: 18:46 None [Active]; iw - PMHx: 18:46 None; iw - PSHx: 18:46 gregory holes; facial surgery; iw - Immunization history:: Client reports receiving the 2nd dose of the Covid vaccine. - Social history:: Smoking status: Patient reports the use of cigarette tobacco products. Screenin:17 Abuse screen: Denies threats or abuse. Denies injuries from another. Nutritional ld1 screening: No deficits noted. Tuberculosis screening: No symptoms or risk factors identified. Fall Risk None identified. Assessment: 21:17 Reassessment: see triage assessment. ld1 21:18 GI: Bowel sounds present X 4 quads. Abd is soft Abdomen is tender to palpation. ld1 Vital Signs: 18:45 BP 140 / 77; Pulse 69; Resp 16; Temp 98.5; Pulse Ox 99% on R/A; iw 21:17 BP 136 / 72; Pulse 61; Resp 18; Pulse Ox 100% on R/A; ld1 ED Course: 18:18 Patient arrived in ED. as 18:29 River Mendenhall PA is PHCP. cp 18:29 Raman Avelar MD is Attending Physician. cp 18:46 Triage completed. iw 18:47 Arm band placed on. iw 18:57 Inserted saline lock: 20 gauge in right antecubital area, using aseptic technique. iw 19:49 Scooter Perez, PANFILO is Primary Nurse. as6 19:59 Michel Puga MD is Attending Physician. cp 20:14 CT Abd/Pelvis - IV Contrast Only In Process Unspecified. EDMS 21:05 Ryne Lacy MD is Referral Physician. cp 21:16 Primary Nurse role handed off by Scooter Perez, PANFILO as6 21:17 Melanie Iqbal, PANFILO is Primary Nurse. ld1 21:17 Patient has correct armband on for positive identification. Placed in gown. Bed in low ld1 position. Call light in reach. Side rails up X2. residential monitor on. Pulse ox on. NIBP on. Door closed. Noise minimized. Warm blanket given. 21:17 No provider procedures requiring assistance completed. IV discontinued, intact, ld1 bleeding controlled, No redness/swelling at site. Administered Medications: 19:12 Drug: Zofran (Ondansetron) 4 mg Route: IVP; Site: right antecubital; iw 19:54 Follow up: Response: No adverse reaction ld1 19:12 Drug: morphine 4 mg Route: IVP; Infused Over: 4 mins; Site: right antecubital; iw 19:54 Follow up: Response: Pain is unchanged, physician notified ld1 19:54 Drug: NS 0.9% 1000 ml Route: IV; Rate: 1 bolus; Site: right antecubital; ld1 19:54 Drug: morphine 4 mg Route: IVP; Infused Over: 4 mins; Site: right antecubital; ld1 20:55 Drug: Bentyl (dicyclomine) 20 mg Route: IM; Site: right deltoid; ld1 Medication: 21:17 VIS not applicable for this client. ld1 Outcome: 21:05 Discharge ordered by . katherin 21:17 Discharged to home ambulatory. ld1 21:17 Condition: stable 21:17 Discharge instructions given to patient, Instructed on discharge instructions, follow up and referral plans. medication usage, Demonstrated understanding of instructions, follow-up care, medications, Prescriptions given X 3. 21:19 Patient left the ED. ld1 Signatures: Dispatcher [employer] Sherlyn De La Fuente Irene RN RN River Trinidad PA PA cp Dibbern, Lauren, RN RN ld1 Scooter Perez RN RN as6
[2021-11-10 21:25] VITALS: TEMP 98.5
[2021-11-10 21:27] VITALS: BP 136/72; O2SAT 100
== END 2021-11-10 21:19 | disposition home or self-care (01) ==
LOC: ER 18:16
DX: R19.7 Diarrhea, unspecified (principal)
CPT/HCPCS: 85025; 36415; 81003; 83690; 80053; 74177; 96375; 96372; 96374; 99284; J0500; J7030; J2405